=== PATIENT | female | born 1985 | race Caucasian/White ===

== ENCOUNTER 2019-04-27 08:26 | Emergency (ER) | payer OTHER ==
[~2019-04-27] VITALS: Ht 177.8 cm; Wt 97.3 kg
--- NOTE | 2019-04-27 09:02 | PHYS DOC ---
Past History Past Medical History: No Pertinent History Past Surgical History: Other Additional Past Surgical Histo: wisdom teeth Alcohol Use: Rarely Drug Use: None Adult General Chief Complaint Chief Complaint: KNEE SWELLING [facility] HPI 33-year-old female presents with right knee pain. She was playing volleyball on Saturday and had bilateral knee swelling that evening. She iced her knees as usual. She was generally sore on Saturday, but this was not surprising. During the day she was walking and pivoted on her right foot and felt some kind of a pop sensation in the right lateral knee. Since that time she's had more pain. When she woke up this morning, the right knee continued to be swollen and it was difficult to walk due to discomfort. If she straightens her leg it is painful. The pain continues to be along the lateral side. She has not had previous surgery on this knee. She did have a medial collateral ligament strain 3 years ago on the right knee. She denies any other injuries or complaints. Review of Systems Review of Systems Constitutional: Denies fever or chills [] Eyes: Denies change in visual acuity, redness, or eye pain [] HENT: Denies nasal congestion or sore throat [] Respiratory: Denies cough or shortness of breath [] Cardiovascular: No additional information not addressed in HPI [] GI: Denies abdominal pain, nausea, vomiting, bloody stools or diarrhea [] : Denies dysuria or hematuria [] Musculoskeletal: Right knee pain[] Integument: Denies rash or skin lesions [] Neurologic: Denies headache, focal weakness or sensory changes [] Endocrine: Denies polyuria or polydipsia [] All other systems were reviewed and found to be within normal limits, except as documented in this note. Allergies Allergies Allergies Coded Allergies Type Severity Reaction Last Updated Verified No Known Drug Allergies 04/27/19 No Physical Exam Physical Exam Constitutional: Well developed, well nourished, no acute distress, non-toxic appearance. [] HENT: Normocephalic, atraumatic, bilateral external ears normal, oropharynx moist, no oral exudates, nose normal. [] Eyes: PERRLA, EOMI, conjunctiva normal, no discharge. [] Neck: Normal range of motion, no tenderness, supple, no stridor. [] Cardiovascular:Heart rate regular rhythm, no murmur [] Lungs & Thorax: Bilateral breath sounds clear to auscultation [] Abdomen: Bowel sounds normal, soft, no tenderness, no masses, no pulsatile masses. [] Skin: Warm, dry, no erythema, no rash. [] Back: No tenderness, no CVA tenderness. [] Extremities: Right knee ligaments with good and feel. No pain with anterior and posterior drawer. Minimal, lateral joint line tenderness. Lateral pain with varus stress.[] Neurologic: Alert and oriented X 3, normal motor function, normal sensory function, no focal deficits noted. [] Psychologic: Affect normal, judgement normal, mood normal. [] Current Patient Data Vital Signs Vital Signs Date Time Temp Pulse Resp B/P (MAP) Pulse Ox O2 Delivery O2 Flow Rate FiO2 04/27/19 08:37 97.8 63 18 97 Room Air EKG EKG [] Radiology/Procedures Radiology/Procedures [] Impressions: KNEE RIGHT 4V History: Volleyball injury. Right knee pain. Swelling. Technique: 4 views right knee. Comparison: None. Findings: Normal alignment. No fracture. Large knee joint effusion. Mild patellar spurring. Impression: 1. No acute osseous abnormality. MRI can further evaluate for internal derangement. 2. Large knee joint effusion. Electronically signed by: Chetan Brooks DO (04/27/2019 9:49 AM) [facility] DICTATED AND SIGNED BY: CHETAN BROOKS DO DATE: 04/27/19 0949 CC: AMBER REDDING DO; ASHLEY LYONS DO, MPH ~ Course & Med Decision Making Course & Med Decision Making Pertinent Labs and Imaging studies reviewed. (See chart for details) X-rays negative for fracture or dislocation. She was urged joint effusion. I've advised that the patient take anti-inflammatories and rest the knee. It does not improve in the next few days, she may need an MRI to assess for meniscus tear. I will discharge her with a short course of [place] 5/325. She is stable for discharge at this time. [] Dragon Disclaimer Dragon Disclaimer This electronic medical record was generated, in whole or in part, using a voice recognition dictation system. Departure Departure: Impression: Primary Impression: Right knee pain Disposition: 01 HOME, SELF-CARE Condition: STABLE Referrals: ASHLEY LYONS DO, MPH (PCP) Patient Instructions: Knee - Cartilage (Meniscus) Injury, Knee Effusion, Oxaq-wm-[facility] Hydrocodone Bit/Acetaminophen (NORCO 5-325 TABLET) 1 Each Tablet 1 TAB PO PRN Q6HRS PRN for PAIN, #14 TAB 0 Refills Prov: AMBER REDDING DO 04/27/19 Problem Qualifiers Primary Impression: Right knee pain Chronicity: acute Qualified Codes: M25.561 - Pain in right knee AMBER REDDING DO Apr 27, 2019 09:01
--- NOTE | 2019-04-27 09:52 | RAD ---
KNEE RIGHT 4V History: Volleyball injury. Right knee pain. Swelling. Technique: 4 views right knee. Comparison: None. Findings: Normal alignment. No fracture. Large knee joint effusion. Mild patellar spurring. Impression: 1. No acute osseous abnormality. MRI can further evaluate for internal derangement. 2. Large knee joint effusion. Electronically signed by: Newton Ma DO (04/27/2019 9:49 AM) [id number]
[2019-04-27] MEDS ORDERED: HYDR-3165 PO (10:20)
[2019-04-27 10:32] VITALS: BP 125/78
[2019-04-27] MEDS ORDERED: HYDROcodone/APAP 5/325MG 1 TAB TABLET PO ONE (10:45)
== END 2019-04-27 10:35 | disposition home or self-care (01) ==
LOC: ER 08:26
DX: M25.561 Pain in right knee (principal); R22.41 Localized swelling, mass and lump, right lower limb
CPT/HCPCS: 73564; 99284